=== PATIENT | female | born 2000 | race Caucasian/White ===

== ENCOUNTER 2023-09-05 14:00 | Emergency (ER) | payer BC | END 2023-09-05 15:29 | disposition home or self-care (01) | LOC: VM.ED 14:00 | DX: S92.311A Displaced fracture of first metatarsal bone, right foot, initial encounter for closed fracture (principal); Z79.899 Other long term (current) drug therapy; W18.40XA Slipping, tripping and stumbling without falling, unspecified, initial encounter | CPT/HCPCS: 29515; 73630-RT; 99283 ==